=== PATIENT | male | born 1955 | race Caucasian/White ===

== ENCOUNTER 2023-08-22 06:24 | Day surgery (SDC) | payer MEDICARE, OTHER, SELFPAY ==
[2023-08-22 09:00] VITALS: BMI 26.5
[2023-08-22 09:10] VITALS: BP 128/73
[2023-08-22 09:34] LABS: Glucose - Point of Care 117 mg/dl (70-99)
[2023-08-22 09:39] VITALS: BMI 26.5
[2023-08-22 11:57] VITALS: BP 120/76
[2023-08-22 12:00] VITALS: BP 116/77
[2023-08-22 12:15] VITALS: BP 126/75
== END 2023-08-22 12:25 | disposition home or self-care (01) ==
LOC: GI 06:24
PROVIDERS: ATTENDING PHYSICIAN Internal Medicine Gastroenterology; FAMILY PHYSICIAN Family Medicine
DX: D12.0 Benign neoplasm of cecum (principal); K31.7 Polyp of stomach and duodenum; K31.819 Angiodysplasia of stomach and duodenum without bleeding; R76.8 Other specified abnormal immunological findings in serum; Z86.010 Personal history of colon polyps
CPT/HCPCS: 45385; 45380; 43239; 88305; 82962

== ENCOUNTER → 2023-08-30 14:40 | Outpatient (REF) | payer MEDICARE, OTHER, SELFPAY | LOC: HWRAD 14:40 | PROVIDERS: ATTENDING PHYSICIAN Internal Medicine Gastroenterology; FAMILY PHYSICIAN Family Medicine | DX: K76.0 Fatty (change of) liver, not elsewhere classified (principal) | CPT/HCPCS: 76700 ==

== ENCOUNTER → 2023-10-03 12:17 | Outpatient (REF) | payer MEDICARE, OTHER, SELFPAY | LOC: HWRAD 12:17 | PROVIDERS: ATTENDING PHYSICIAN Internal Medicine Gastroenterology; FAMILY PHYSICIAN Family Medicine | DX: R10.9 Unspecified abdominal pain (principal) | CPT/HCPCS: 74177; Q9967 ==

== ENCOUNTER 2024-06-18 21:16 | Emergency (ER) | payer MEDICARE, OTHER, SELFPAY ==
[2024-06-18 21:18] VITALS: BP 130/71
[2024-06-18 21:51] VITALS: BMI 26.3
[2024-06-18] MEDS: OMNIPAQUE 50 ML PO (22:08)
[2024-06-18] MEDS: ZOFRAN 4 MG IV (22:08)
[2024-06-18 22:09] LABS: % Basophils 0.1 % (0-2); % Eosinophils 0.2 % (0-6); % Immature Granulocytes 0.5 % (0-0.5); % Lymphocytes 4.3 % (20.5-51.1); % Monocytes 5.1 % (1.7-9.3); % Neutrophils 89.8 % (42.2-75.2); Absolute Lymphocytes 0.4 10^3/uL (1.2-3.4); Absolute Monocytes 0.5 10^3/uL (0.1-0.6); Absolute Neutrophils 7.9 10^3/uL (1.4-6.5); Hematocrit 46.3 % (39.0-52.0); Mean Corp Hgb Conc. 36.7 g/dL (33.0-37.0); Mean Corpuscular Hgb 32.4 pg (27.0-31.0); Mean Corpuscular Volume 88.4 fL (80.0-94.0); Mean Platelet Volume 9.2 fL (7.4-10.4); Nucleated Red Blood Cells % 0 % (-); Platelet Count 224 10^3/uL (130-400); Red Blood Cell Count 5.24 10^6/uL (4.70-6.10); Red Cell Dist. Width 12.6 % (11.5-14.5); White Blood Cell Count 8.8 10^3/uL (4.8-10.8)
[2024-06-18] MEDS: NSS 1000 IV (22:10)
[2024-06-18 22:20] VITALS: BP 141/66
[2024-06-18 22:26] LABS: ALT (SGPT) 33 U/L (0-50); AST (SGOT) 22 U/L (17-59); Albumin 4.2 g/dl (3.5-5.0); Alkaline Phosphatase 73 U/L (38-126); Blood Urea Nitrogen 23 mg/dl (9-20); Calcium 8.7 mg/dl (8.4-10.2); Carbon Dioxide 16 mmol/L (22-30); Chloride 104 mmol/L (98-107); Estimated Creatinine Clearance 98 ml/min; Glucose 266 mg/dl (70-99); Lipase 79 U/L (23-300); Potassium 3.7 mmol/L (3.5-5.1); Sodium 132 mmol/L (135-145); Total Bilirubin 0.8 mg/dl (0.2-1.3); Total Protein 6.8 g/dl (6.3-8.2); eGFR > 60.00
--- NOTE | 2024-06-18 23:03 | ED.GENMED ---
History of Present Illness
<Nasreen Ramirez NP - Last Filed: 06/23/24 00:39>
General
Chief Complaint: Rectal Bleeding
Source: patient
Exam Limitations: none
Time Seen by Provider: 06/18/24 21:42
Nursing documentation reviewed up to this point in time: agreed with
History of Present Illness
History of Present Illness:
Patient to ED wtih complaint of multiple episodes of black diarrhea. Symptoms started this AM. Denies fever/chills. Reports diffuse abd. discomfort. states she had multiple episodes of diarrhea yesterday but stool was not black. He reports
he had 2 doses of Pepto which may be why stool is black.
Past History
<Nasreen Ramirez TC OPERATOR - Last Filed: 06/23/24 00:39>
Past History
ED Past Medical History: Arrthythmia (afib), CAD, COPD, GERD, HTN, Hypercholesterolemia, NIDDM, Other (Back pain, history of a TIA 2002) and Other (Pancreatitis, sleep apnea)
ED Past Surgical History: Cardiac (Stent X1), Cholecystectomy and Other
Social History
Tobacco: Smoker
Alcohol: None
Personal: Single (Lives with significant other)
Living: with family
Employment: Employed
Review of Systems
<Nasreen Ramirez TC OPERATOR - Last Filed: 06/23/24 00:39>
Review of Systems
Allergies reviewed?: Yes
All Other Systems: ROS reviewed and negative except as documented in HPI and ROS
Constitutional: Reports no symptoms
EENT: Reports no symptoms
Respiratory: Reports no symptoms
Cardiac: Reports no symptoms
ABD/GI: Reports abdominal pain (diffuse), diarrhea and black stools (black diarrhea)
: Reports no symptoms
Musculoskeletal: Reports no symptoms
Skin: Reports no symptoms
Neurological: Reports no symptoms
Psychiatric: Reports no symptoms
Phy Exam
<Nasreen Ramirez NP - Last Filed: 06/23/24 00:39>
General Physical Exam
General Presentation: well appearing and mild distress
General age: appears stated age
General Skin: warm and dry
General Habitus: normal
General Mental: alert
Cardiovascular Exam
Cardiovascular Exam: regular rate/rhythm and no edema
Gastrointestinal Exam
Gastrointestinal Exam: normal bowel sounds, soft, no organomegaly, no pulsatile mass, non distended and no cva tenderness
Palpation: generalized: Moderate tenderness
Rectal Exam: normal external exam, normal sphincter tone and soft stool
Stool: green
Guaiac Status: negative
Musculoskeletal Exam
Musculoskeletal Exam: full ROM and neuro vasc intact
Skin Exam
Skin Exam: normal color, warm/dry and no rash
Psychiatric Exam
Psychiatric Exam: normal mood/affect
Course
<Nasreen Ramirez TC OPERATOR - Last Filed: 06/23/24 00:39>
Orders/Labs/Results
Orders:
Orders
06/18/24 21:55
Ondansetron Injectable [Zofran] 4 mg IV NOW STA
06/18/24 21:56
Urinalysis Reflex To Culture Urgent
Date Specimen was Collected: 06/19/24
Time Specimen was Collected: 00:18
0.9% Sodium Chloride 1000 ml [Nss] 1,000 ml IV BOLUS
06/18/24 21:58
STOOL [C difficile Antigen & Toxins] Urgent
STEPHANIE Source: Feces/Stool
Specimen Description:
Date Specimen was Collected: 06/19/24
Time Specimen was Collected: 00:18
Stool Culture Urgent
STEPHAINE Source: Feces/Stool
Specimen Description:
Date Specimen was Collected: 06/19/24
Time Specimen was Collected: 00:18
Iohexol [Omnipaque] See Protocol PO NOW STA
06/18/24 22:03
Complete Blood Count/With Diff Urgent
Comprehensive Metabolic Panel Urgent
Lipase Urgent
06/19/24 00:08
CT Abd/pel W Iv And Oral Contr Urgent
Reason For Exam: dffuse pain, diarrhea
Abnormal Lab Results
06/18/24 06/19/24
22:03 00:20
MCH 32.4 H pg
(27.0-31.0)
Absolute Neuts (auto) 7.9 H 10^3/uL
(1.4-6.5)
Absolute Lymphs (auto) 0.4 L 10^3/uL
(1.2-3.4)
Neutrophils % 89.8 H %
(42.2-75.2)
Lymphocytes % 4.3 L %
(20.5-51.1)
Sodium 132 L mmol/L
(135-145)
Carbon Dioxide 16 L mmol/L
(22-30)
BUN 23 H mg/dl
(9-20)
Glucose 266 H mg/dl
(70-99)
Urine Glucose 3+ A
(Negative)
06/18/24 22:03
06/18/24 22:03
Vital Signs
Initial and Last Documented VS:
Initial Vital Signs
Temp Pulse Resp BP Pulse Ox
98.1 F 103 16 130/71 98
06/18/24 21:18 06/18/24 21:18 06/18/24 21:18 06/18/24 21:18 06/18/24 21:18
Last Documented Vital Signs
Temp Pulse Resp BP Pulse Ox
97.7 F 74 16 108/60 98
06/19/24 02:22 06/19/24 02:22 06/19/24 02:22 06/19/24 02:22 06/19/24 02:22
<Cholo Beth, DO - Last Filed: 06/19/24 02:40>
Orders/Labs/Results
Orders:
Orders
06/18/24 21:55
Ondansetron Injectable [Zofran] 4 mg IV NOW STA
06/18/24 21:56
Urinalysis Reflex To Culture Urgent
Date Specimen was Collected: 06/19/24
Time Specimen was Collected: 00:18
0.9% Sodium Chloride 1000 ml [Nss] 1,000 ml IV BOLUS
06/18/24 21:58
STOOL [C difficile Antigen & Toxins] Urgent
STEPHANIE Source: Feces/Stool
Specimen Description:
Date Specimen was Collected: 06/19/24
Time Specimen was Collected: 00:18
Stool Culture Urgent
STEPHANIE Source: Feces/Stool
Specimen Description:
Date Specimen was Collected: 06/19/24
Time Specimen was Collected: 00:18
Iohexol [Omnipaque] See Protocol PO NOW STA
06/18/24 22:03
Complete Blood Count/With Diff Urgent
Comprehensive Metabolic Panel Urgent
Lipase Urgent
06/19/24 00:08
CT Abd/pel W Iv And Oral Contr Urgent
Reason For Exam: dffuse pain, diarrhea
Abnormal Lab Results
06/18/24 06/19/24
22:03 00:20
MCH 32.4 H pg
(27.0-31.0)
Absolute Neuts (auto) 7.9 H 10^3/uL
(1.4-6.5)
Absolute Lymphs (auto) 0.4 L 10^3/uL
(1.2-3.4)
Neutrophils % 89.8 H %
(42.2-75.2)
Lymphocytes % 4.3 L %
(20.5-51.1)
Sodium 132 L mmol/L
(135-145)
Carbon Dioxide 16 L mmol/L
(22-30)
BUN 23 H mg/dl
(9-20)
Glucose 266 H mg/dl
(70-99)
Urine Glucose 3+ A
(Negative)
06/18/24 22:03
06/18/24 22:03
Vital Signs
Initial and Last Documented VS:
Initial Vital Signs
Temp Pulse Resp BP Pulse Ox
98.1 F 103 16 130/71 98
06/18/24 21:18 06/18/24 21:18 06/18/24 21:18 06/18/24 21:18 06/18/24 21:18
Last Documented Vital Signs
Temp Pulse Resp BP Pulse Ox
97.7 F 74 16 108/60 98
06/19/24 02:22 06/19/24 02:22 06/19/24 02:22 06/19/24 02:22 06/19/24 02:22
<Nasreen Ramirez NP - Last Filed: 06/23/24 00:39>
*Critical Care Note
Total Time (30-74mins, 75-104mins- exclusive of procedures): Not Applicable
ED Attending Note
<Nasreen Ramirez NP - Last Filed: 06/23/24 00:39>
-
Portions of this chart may have been created with voice recognition software.� Occasional wrong word or��sound alike� substitutions may have occurred due to the inherent limitations of voice recognition software.
<Cholo Beth DO - Last Filed: 06/19/24 02:40>
ED Attending Note
Patient seen and examined by attending physician: Yes
I performed the substantive portion of visit, reviewed & personally made and approve the management plan that is documented in note by myself or GWENDOLYN.: Yes
ED Attending Note:
I have seen and evaluated the patient with a [id number] encounter. I have spoken to the advance practicer provider and involved in the medical history, the physical exam, medical decision making.
Evaluation and management service: agree unless noted differently below.
Results interpretation: agree unless noted differently below.
Focused HPI: 69-year-old male presenting with nausea and diarrhea. Patient is concerned because the diarrhea appears black. However, patient does admit to recent Pepto-Bismol use. at bedside states that she had the same issue
Physical exam: Sitting in bed comfortably. No significant abdominal tenderness
Medical Decision Making: The provider indicated that the rectal exam was Hemoccult negative. Bicarb mildly low and blood sugar mildly elevated. However, no evidence of DKA. CT scan negative. Discussed likely viral gastroenteritis
Discharge Plan
Departure
Patient Disposition: Home (Routine Discharge)
Date of Disposition: 06/19/24
Time of Disposition: 02:38
Patient with high blood pressure during this ER visit?: No
Discharge Problem:
Viral gastroenteritis, Hyperglycemia
Instructions: Viral Gastroenteritis, Adult (DC)
Prescriptions:
New
ondansetron 4 mg Tablet,Disintegrating
4 mg PO BIDPRN PRN (Reason: nausea/vomiting) Qty: 10 0RF
No Action
fluticasone furoate-vilanterol [Breo Ellipta] 1 EACH blister with device
1 ea IH R DAILYPRN PRN (Reason: sob)
acetaminophen [Tylenol Extra Strength] 500 MG tablet
500 mg PO Q6HPRN PRN (Reason: mild pain )
atorvastatin 40 MG tablet
40 mg PO QPM
metoprolol tartrate 25 MG tablet
50 mg PO BID
Xarelto 20 MG tablet
20 mg PO QPM
loperamide [Imodium A-D] 2 mg Capsule
2 mg PO Q6H PRN (Reason: diarrhea)
pantoprazole 40 mg Tablet,Delayed Release (Dr/Ec)
40 mg PO DAILY
gabapentin 100 mg Tablet
100 mg PO BID
Jardiance 10 mg Tablet
10 mg PO DAILY
glucosamine HCl
1,500 mg PO BID
Mounjaro 7.5 mg/0.5 mL Pen Injector
See Rx Instructions .ROUTE .COMPLEX
Rx Instructions:
7.5 mg subcutaneously. Patient takes this medication every other week.
simethicone 180 mg Capsule
PO DIRECTED
Colyte with Flavor Packs 227.1-21.5-6.36 gram Recon Soln
DIRECTED
Dulcolax (bisacodyl)
PO DIRECTED
Referrals:
Jacky Wade MD [Family Provider] -
Activity Restrictions/Additional Instructions:
Please return for any worsening symptoms.
You may return at any time if you have further concerns.
Please follow up with your doctor at the first available appointment, preferably this week. Please discuss your ongoing symptoms and your elevated blood sugar.
Thank you for choosing [facility].
Interventions
Interventions:
*Risk Screen - Suicide Last Done: 06/18/24 21:18
*General Assessment Last Done: 06/18/24 21:52
*Neglect/Abuse Screening Last Done: 06/18/24 21:18
ED- Fall Risk Assessment Last Done: 06/19/24 02:50
*ED COVID-19 Vaccine History Last Done: 06/18/24 21:18
*Nursing Disposition Last Done: 06/19/24 02:50
JB-Amiasx-Vahgdtbdds Assessment Last Done: 06/18/24 22:19
ED- Cardiac Assessment Last Done: 06/18/24 22:19
ED- Pulmonary Assessment Last Done: 06/18/24 22:19
Discharge Date and Time
Discharge Date/Time: 06/19/24 02:50
Print Language: FAROESE
[2024-06-19 00:37] VITALS: BP 126/68
[2024-06-19 02:22] VITALS: BP 108/60
[2024-06-19 02:59] LABS: Urine Albumin Trace (Neg - Trace); Urine Bilirubin Negative (Negative); Urine Character Clear (Clear); Urine Color Yellow; Urine Glucose 3+ (Negative); Urine Ketone Negative (Negative); Urine Leukocyte Negative (Negative); Urine Nitrite Negative (Negative); Urine Occult Blood Negative (Negative); Urine Urobilinogen Negative (Neg - 1+)
== END 2024-06-19 02:50 | disposition home or self-care (01) ==
LOC: EMR 21:16
PROVIDERS: Nurse Practitioner; EMERGENCY PHYSICIAN Student in an Organized Health Care Education/Training Program; FAMILY PHYSICIAN Family Medicine
DX: A08.4 Viral intestinal infection, unspecified (principal); E11.65 Type 2 diabetes mellitus with hyperglycemia; F17.200 Nicotine dependence, unspecified, uncomplicated
CPT/HCPCS: 99285; 96374; 96361; 74177; 80053; 81003; 83690; 85025; 87045; 87046; 87077; 87324; 87427; 87449; Q9967

== ENCOUNTER → 2024-08-26 11:45 | Outpatient (REF) | payer MEDICARE, OTHER, SELFPAY ==
[2024-08-26 12:37] LABS: % Basophils 0.3 % (0-2); % Eosinophils 1.2 % (0-6); % Immature Granulocytes 0.5 % (0-0.5); % Lymphocytes 18.8 % (20.5-51.1); % Neutrophils 72.2 % (42.2-75.2); Absolute Eosinophils 0.1 10^3/uL (0-0.7); Absolute Lymphocytes 1.6 10^3/uL (1.2-3.4); Absolute Monocytes 0.6 10^3/uL (0.1-0.6); Absolute Neutrophils 6.3 10^3/uL (1.4-6.5); Hemoglobin 15.7 g/dL (13.0-18.0); Mean Corp Hgb Conc. 36.5 g/dL (33.0-37.0); Mean Corpuscular Hgb 31.9 pg (27.0-31.0); Mean Corpuscular Volume 87.4 fL (80.0-94.0); Mean Platelet Volume 9.5 fL (7.4-10.4); Nucleated Red Blood Cells % 0 % (-); Platelet Count 310 10^3/uL (130-400); Red Blood Cell Count 4.92 10^6/uL (4.70-6.10); Red Cell Dist. Width 12.3 % (11.5-14.5); White Blood Cell Count 8.7 10^3/uL (4.8-10.8)
[2024-08-26 13:49] LABS: ALT (SGPT) 37 U/L (0-50); AST (SGOT) 22 U/L (17-59); Albumin 4.3 g/dl (3.5-5.0); Alkaline Phosphatase 139 U/L (38-126); Blood Urea Nitrogen 30 mg/dl (9-20); Calcium 9.9 mg/dl (8.4-10.2); Carbon Dioxide 26 mmol/L (22-30); Chloride 92 mmol/L (98-107); Glucose 504 mg/dl (70-99); HDL Cholesterol 47 mg/dl; LDL Cholesterol, Calculated 115 mg/dl; PSA, Total - Screen 0.55 ng/ml (0.0-4.0); Potassium 4.8 mmol/L (3.5-5.1); Sodium 129 mmol/L (135-145); Total Bilirubin 0.8 mg/dl (0.2-1.3); Total Cholesterol 240 mg/dl (50-199); Total Protein 6.8 g/dl (6.3-8.2); Triglyceride 393 mg/dl (10-149); Very Low Density Lipoprotein 78 mg/dl (0-30); eGFR > 60.00
[2024-08-26 13:55] LABS: Glycohemoglobin (HgbA1c) 10.6 % (4.0-5.6)
[2024-08-26 17:10] LABS: Urine Albumin Negative (Neg - Trace); Urine Bilirubin Negative (Negative); Urine Character Clear (Clear); Urine Color Yellow; Urine Glucose 4+ (Negative); Urine Ketone Negative (Negative); Urine Leukocyte Negative (Negative); Urine Nitrite Negative (Negative); Urine Occult Blood Negative (Negative); Urine Urobilinogen Negative (Neg - 1+)
[2024-08-26 17:42] LABS: Microalbumin, Random Urine 3.2 mg/dl (0.6-1.7); Microalbumin/creatinine Ratio 149.5 mg/g
== END ==
LOC: REG 11:45
PROVIDERS: ATTENDING PHYSICIAN Family Medicine
DX: E11.65 Type 2 diabetes mellitus with hyperglycemia (principal); E78.2 Mixed hyperlipidemia; I10 Essential (primary) hypertension; Z12.5 Encounter for screening for malignant neoplasm of prostate; R35.1 Nocturia
CPT/HCPCS: 36415; 80053; 80061; 81003; 82043; 82570; 83036; 85025; 87086; G0103

== ENCOUNTER → 2024-12-03 07:47 | Outpatient (REF) | payer MEDICARE, OTHER, SELFPAY ==
[2024-12-03 09:05] LABS: ALT (SGPT) 30 U/L (0-50); AST (SGOT) 20 U/L (17-59); Albumin 4.2 g/dl (3.5-5.0); Alkaline Phosphatase 73 U/L (38-126); Blood Urea Nitrogen 15 mg/dl (9-20); Calcium 9.8 mg/dl (8.4-10.2); Carbon Dioxide 27 mmol/L (22-30); Chloride 107 mmol/L (98-107); Glucose 148 mg/dl (70-99); HDL Cholesterol 34 mg/dl; LDL Cholesterol, Calculated 106 mg/dl; Potassium 4.6 mmol/L (3.5-5.1); Sodium 142 mmol/L (135-145); Total Bilirubin 0.5 mg/dl (0.2-1.3); Total Cholesterol 190 mg/dl (50-199); Total Protein 7.5 g/dl (6.3-8.2); Triglyceride 252 mg/dl (10-149); Very Low Density Lipoprotein 50 mg/dl (0-30); eGFR > 60.00
[2024-12-03 09:38] LABS: Microalbumin, Random Urine 9.5 mg/dl (0.6-1.7); Microalbumin/creatinine Ratio 130.5 mg/g
== END ==
LOC: REG 07:47
PROVIDERS: ATTENDING PHYSICIAN Nurse Practitioner Family; FAMILY PHYSICIAN Family Medicine
DX: E11.9 Type 2 diabetes mellitus without complications (principal)
CPT/HCPCS: 36415; 80053; 80061; 82043; 82570; 83036

== ENCOUNTER → 2025-04-15 07:48 | Outpatient (REF) | payer MEDICARE, OTHER, SELFPAY | LOC: RAD 07:48 | PROVIDERS: ATTENDING PHYSICIAN Family Medicine | DX: Z87.891 Personal history of nicotine dependence (principal); R91.1 Solitary pulmonary nodule | CPT/HCPCS: 71271 ==

== ENCOUNTER 2025-04-29 16:42 | Emergency (ER) | payer MEDICARE, OTHER, SELFPAY ==
[2025-04-29 16:44] VITALS: BP 134/72
[2025-04-29 18:40] VITALS: BP 131/81
--- NOTE | 2025-04-29 18:40 | ED.GENMED ---
History of Present Illness
General
Chief Complaint: Insect Sting
Source: patient
Exam Limitations: none
Time Seen by Provider: 04/29/25 18:04
Nursing documentation reviewed up to this point in time: agreed with
History of Present Illness
History of Present Illness:
Patient to ED for eval of suspected insect sting to left volar forearm. Incident occurred this evening. Unsure what bit him. 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 These symptoms have improved. No difficulty breathing or swallowing.
Past History
Past History
ED Past Medical History: Arrthythmia (afib), CAD, COPD, GERD, HTN, Hypercholesterolemia, NIDDM, Other (Back pain, history of a TIA 2002) and Other (Pancreatitis, sleep apnea)
ED Past Surgical History: Cardiac (Stent X1), Cholecystectomy and Other
Social History
Tobacco: Smoker
Alcohol: None
Personal: Single (Lives with significant other)
Living: with family
Employment: Employed
Review of Systems
Review of Systems
Allergies reviewed?: Yes
All Other Systems: ROS reviewed and negative except as documented in HPI and ROS
Constitutional: Reports no symptoms
EENT: Reports no symptoms
Respiratory: Reports no symptoms
Cardiac: Reports no symptoms
ABD/GI: Reports no symptoms
Musculoskeletal: Reports no symptoms
Skin: Reports other (insect sting right volar forearm)
Neurological: Reports no symptoms
Psychiatric: Reports no symptoms
Phy Exam
General Physical Exam
General Presentation: well appearing and no apparent distress
General age: appears stated age
General Skin: warm and dry
General Habitus: normal
Cardiovascular Exam
Cardiovascular Exam: regular rate/rhythm and no edema
Pulmonary Exam
Pulmonary Exam: lungs clear and no respiratory distress
Musculoskeletal Exam
Musculoskeletal Exam: full ROM and neuro vasc intact
Skin Exam
Skin Exam: normal color, warm/dry and no rash
Psychiatric Exam
Psychiatric Exam: normal mood/affect
Course
Orders/Labs/Results
Orders:
Orders
04/29/25 16:48
EKG [Electrocardiogram (*1)] Urgent
Reason for Study: Vertigo / Dizzy
EKG- Treatment ONCE
Vital Signs
Initial and Last Documented VS:
Initial Vital Signs
Temp Pulse Resp BP Pulse Ox
97.9 F 62 18 134/72 99
04/29/25 16:44 04/29/25 16:44 04/29/25 16:44 04/29/25 16:44 04/29/25 16:44
Last Documented Vital Signs
Temp Pulse Resp BP Pulse Ox
97.9 F 71 16 131/81 98
04/29/25 16:44 04/29/25 18:40 04/29/25 18:40 04/29/25 18:40 04/29/25 18:40
*Pulse Oximetry
SaO2: 99
Oxygen Mode of Delivery: Room air
Patient hypoxic: no
*Critical Care Note
Total Time (30-74mins, 75-104mins- exclusive of procedures): Not Applicable
Update Note
Update Note:
Patient to ED for suspected insect bite to right foream. He reported swelling and redness IN [employer]SRO[employer] TUT[employer], this has resolved. No difficulty breathing or swllowing. WIll discharge home and he will follow upw ith PCP. Given rx for medrol dose pack. He will
begin med if swellng and redness return in the next 24 hour. Given instructions on s/s to return to ED andhe is agreeable t plan
ED Attending Note
-
Portions of this chart may have been created with voice recognition software.� Occasional wrong word or��sound alike� substitutions may have occurred due to the inherent limitations of voice recognition software.
Discharge Plan
Departure
Patient Disposition: Home (Routine Discharge)
Date of Disposition: 04/29/25
Time of Disposition: 18:37
Patient with high blood pressure during this ER visit?: No
Condition: Good
Covid-19: Not Applicable
Discharge Problem:
Insect bite
Instructions: Insect Bites and Stings (DC), Cold therapy for pain
Prescriptions:
New
methylprednisolone [Medrol (Smooth)] 4 mg tablets,dose pack
See Rx Instructions .ROUTE .COMPLEX Qty: 21 0RF
Rx Instructions:
for 6 days
No Action
fluticasone furoate-vilanterol [Breo Ellipta] 1 EACH blister with device
1 ea IH R DAILYPRN PRN (Reason: sob)
acetaminophen [Tylenol Extra Strength] 500 MG tablet
500 mg PO Q6HPRN PRN (Reason: mild pain )
atorvastatin 40 MG tablet
40 mg PO QPM
metoprolol tartrate 25 MG tablet
50 mg PO BID
Xarelto 20 MG tablet
20 mg PO QPM
loperamide [Imodium A-D] 2 mg Capsule
2 mg PO Q6H PRN (Reason: diarrhea)
pantoprazole 40 mg Tablet,Delayed Release (Dr/Ec)
40 mg PO DAILY
gabapentin 100 mg Tablet
100 mg PO BID
Jardiance 10 mg Tablet
10 mg PO DAILY
glucosamine HCl
1,500 mg PO BID
Mounjaro 7.5 mg/0.5 mL Pen Injector
See Rx Instructions .ROUTE .COMPLEX
Rx Instructions:
7.5 mg subcutaneously. Patient takes this medication every other week.
simethicone 180 mg Capsule
PO DIRECTED
Colyte with Flavor Packs 227.1-21.5-6.36 gram Recon Soln
DIRECTED
Dulcolax (bisacodyl)
PO DIRECTED
ondansetron 4 mg Tablet,Disintegrating
4 mg PO BIDPRN PRN (Reason: nausea/vomiting) Qty: 10 0RF
Referrals:
Amanda Mancuso MD [Family Provider, General] - Follow up in 2-3 days
Activity Restrictions/Additional Instructions:
Return to the emergency department immediately for any changes in/worsening of your symptoms.
Interventions
Interventions:
*Risk Screen - Suicide Last Done: 04/29/25 16:44
*General Assessment Last Done: 04/29/25 16:44
*Neglect/Abuse Screening Last Done: 04/29/25 18:04
*ED- Fall Risk Assessment Last Done: 04/29/25 18:04
*ED COVID-19 Vaccine History Last Done: 04/29/25 16:44
*ED Influenza Vaccine History Last Done: 04/29/25 16:44
*Nursing Disposition Last Done: 04/29/25 18:40
ED-Skin Assessment Last Done: 04/29/25 18:04
ED- Pulmonary Assessment Last Done: 04/29/25 18:04
Discharge Date and Time
Discharge Date/Time: 04/29/25 18:41
Print Language: ALBANIAN
Skin Exam
Bite
Right volar forearm:
Type: insect/spider
Surrounding area around bite has: no evidence of erythema
Distal skin color and temperature: normal-warm & good color
Normal distal neurovascular exam: Yes
== END 2025-04-29 18:41 | disposition home or self-care (01) ==
LOC: EMR 16:42
PROVIDERS: EMERGENCY PHYSICIAN Emergency Medicine; FAMILY PHYSICIAN Student in an Organized Health Care Education/Training Program
DX: S50.861A Insect bite (nonvenomous) of right forearm, initial encounter (principal); W57.XXXA Bitten or stung by nonvenomous insect and other nonvenomous arthropods, initial encounter; E11.9 Type 2 diabetes mellitus without complications; I25.10 Atherosclerotic heart disease of native coronary artery without angina pectoris; I48.91 Unspecified atrial fibrillation; I10 Essential (primary) hypertension; E78.00 Pure hypercholesterolemia, unspecified; J44.9 Chronic obstructive pulmonary disease, unspecified; G47.30 Sleep apnea, unspecified; K21.9 Gastro-esophageal reflux disease without esophagitis; F17.200 Nicotine dependence, unspecified, uncomplicated; Z79.84 Long term (current) use of oral hypoglycemic drugs; Z79.01 Long term (current) use of anticoagulants; Z95.5 Presence of coronary angioplasty implant and graft; Z86.73 Personal history of transient ischemic attack (TIA), and cerebral infarction without residual deficits
CPT/HCPCS: 99283; 93005

== ENCOUNTER → 2025-06-07 10:03 | Outpatient (REF) | payer MEDICARE, OTHER, SELFPAY ==
[2025-06-07 11:37] LABS: Glycohemoglobin (HgbA1c) 7.4 % (4.0-5.9)
[2025-06-07 11:56] LABS: ALT (SGPT) 27 U/L (0-50); AST (SGOT) 21 U/L (17-59); Albumin 4.5 g/dl (3.5-5.0); Alkaline Phosphatase 80 U/L (38-126); Blood Urea Nitrogen 17 mg/dl (9-20); Calcium 9.5 mg/dl (8.4-10.2); Carbon Dioxide 25 mmol/L (22-30); Chloride 106 mmol/L (98-107); Glucose 166 mg/dl (70-99); HDL Cholesterol 38 mg/dl; LDL Cholesterol, Calculated 131 mg/dl; Potassium 4.3 mmol/L (3.5-5.1); Sodium 134 mmol/L (135-145); Total Protein 7.7 g/dl (6.3-8.2); Very Low Density Lipoprotein 43 mg/dl (0-30); eGFR > 60.00
[2025-06-07 13:02] LABS: Microalb - Urine Creatinine 93.800 mg/dl
[2025-06-07 13:46] LABS: Microalbumin, Random Urine 23.6 mg/dl (0.6-1.7)
== END ==
LOC: REG 10:03
PROVIDERS: ATTENDING PHYSICIAN Nurse Practitioner Family; FAMILY PHYSICIAN Family Medicine
DX: E11.9 Type 2 diabetes mellitus without complications (principal)
CPT/HCPCS: 36415; 80053; 80061; 82043; 82570; 83036